=== PATIENT | male | born 1950 | race Caucasian/White ===

== ENCOUNTER 2018-01-06 05:59 | Emergency (ER) | payer MEDICARE, OTHER ==
[2018-01-06 06:20] VITALS: TEMP 98.1; BMI 28.9
[2018-01-06 06:36] LABS: URINE APPEARANCE CLEAR; URINE BILIRUBIN NEGATIVE (NEGATIVE); URINE BLOOD NEGATIVE (NEGATIVE); URINE COLOR LTYELLOW; URINE GLUCOSE (UA) 1+ (NEGATIVE); URINE KETONE NEGATIVE (NEGATIVE); URINE LEUK ESTERASE NEGATIVE (NEGATIVE); URINE NITRITE NEGATIVE (NEGATIVE); URINE PROTEIN NEGATIVE (NEGATIVE); URINE UROBILINOGEN NEGATIVE mg/dL (0.2-1.0)
--- NOTE | 2018-01-06 07:11 | PDOC ---
History of Present Illness - General Chief Complaint: Urinary Problem Stated Complaint: UNABLE TO URINATE Time Seen by Provider: 01/06/18 07:11 Past History - Past Medical History Allergies/Adverse Reactions: Allergies Allergy/AdvReac Type Severity Reaction Status Date / Time Penicillins Allergy "RASH" Verified 01/06/18 06:14 Home Medications: Ambulatory Orders Glyburide 5 mg PO DAILY 10/08/16 Lisinopril [Prinivil] 20 mg PO DAILY 10/08/16 Metformin HCl [Glucophage] 1,000 mg PO DAILY 10/08/16 Simvastatin 20 mg PO DAILY 10/08/16 COPD: No Diabetes: Yes HTN: Yes Hypercholesterolemia: Yes Other medical history: urinary / bladder problems - Surgical History Abdominal Surgery: Yes (HERNIA SURGERY) - Suicide/Smoking/Psychosocial Hx Smoking History: Never smoked Have you smoked in the past 12 months: No If you are a former smoker, when did you quit?: 13YRS AGO Hx Alcohol Use: No Drug/Substance Use Hx: No Substance Use Type: None Hx Substance Use Treatment: No *Physical Exam - Vital Signs Last Vital Signs Temp Pulse Resp BP Pulse Ox 98.1 F 78 22 136/76 98 01/06/18 06:19 01/06/18 06:19 01/06/18 06:19 01/06/18 06:19 01/06/18 06:19 ED Treatment Course - ADDITIONAL ORDERS Additional order review: Laboratory Results 01/06/18 06:20 Urine Color Ltyellow Urine Appearance Clear Urine pH 5.0 Ur Specific [place] 1.018 Urine Protein Negative Urine Glucose (UA) 1+ H Urine Ketones Negative Urine Blood Negative Urine Nitrite Negative Urine Bilirubin Negative Urine Urobilinogen Negative Ur Leukocyte Esterase Negative *DC/Admit/Observation/Transfer - Referrals Referrals: Edgard Shin MD [Primary Care Provider] - - Patient Instructions - Post Discharge Activity
--- NOTE | 2018-01-06 07:32 | PDOC ---
History of Present Illness - General Chief Complaint: Urinary Problem Stated Complaint: UNABLE TO URINATE Time Seen by Provider: 01/06/18 07:11 - History of Present Illness Initial Comments: 01/06/18 07:31 Mr. Aguilar is a 67 yo male w/ pmh of HTN, HLD, neurogenic bladder, and DM who presents c/o inability to urinate since he woke up around 2 or 3 am this morning. He reports this has happened last week as well and he had a subramanian placed at [facility] that was taken out later in the week. He has no complaints other than his inability to urinate at this time. The patient denies chest pain, shortness of breath, headache and dizziness. Denies fever, chills, nausea, vomit, diarrhea and constipation. Allergies: Penicillins, Aspirin Past History - Past Medical History Allergies/Adverse Reactions: Allergies Allergy/AdvReac Type Severity Reaction Status Date / Time Penicillins Allergy "RASH" Verified 01/06/18 06:14 Home Medications: Ambulatory Orders Glyburide 5 mg PO DAILY 10/08/16 Lisinopril [Prinivil] 20 mg PO DAILY 10/08/16 Metformin HCl [Glucophage] 1,000 mg PO DAILY 10/08/16 Simvastatin 20 mg PO DAILY 10/08/16 COPD: No Diabetes: Yes HTN: Yes Hypercholesterolemia: Yes Other medical history: urinary / bladder problems - Surgical History Abdominal Surgery: Yes (HERNIA SURGERY) - Suicide/Smoking/Psychosocial Hx Smoking History: Never smoked Have you smoked in the past 12 months: No If you are a former smoker, when did you quit?: 13YRS AGO Hx Alcohol Use: No Drug/Substance Use Hx: No Substance Use Type: None Hx Substance Use Treatment: No Review of Systems - Review of Systems Comments:: 01/06/18 07:31 GENERAL/CONSTITUTIONAL: No fever or chills. No weakness. HEAD, EYES, EARS, NOSE AND THROAT: No change in vision. No ear pain or discharge. No sore throat. CARDIOVASCULAR: No chest pain or shortness of breath RESPIRATORY: No cough, wheezing, or hemoptysis. GASTROINTESTINAL: No nausea, vomiting, diarrhea or constipation. GENITOURINARY: +Inability to urinate since he awoke around 2am this morning. MUSCULOSKELETAL: No joint or muscle swelling or pain. No neck or back pain. SKIN: No rash NEUROLOGIC: No headache, vertigo, loss of consciousness, or change in strength/ sensation. ENDOCRINE: No increased thirst. No abnormal weight change HEMATOLOGIC/LYMPHATIC: No anemia, easy bleeding, or history of blood clots. ALLERGIC/IMMUNOLOGIC: No hives or skin allergy. *Physical Exam - Vital Signs Last Vital Signs Temp Pulse Resp BP Pulse Ox 98.1 F 78 22 136/76 98 01/06/18 06:19 01/06/18 06:19 01/06/18 06:19 01/06/18 06:19 01/06/18 06:19 - Physical Exam Comments: 01/06/18 07:31 GENERAL: Awake, alert, and fully oriented, in no acute distress HEAD: No signs of trauma, normocephalic, atraumatic EYES: PERRLA, EOMI, sclera anicteric, conjunctiva clear ENT: Auricles normal inspection, hearing grossly normal, nares patent, oropharynx clear without exudates. Moist mucosa NECK: Normal ROM, supple, no lymphadenopathy, JVD, or masses LUNGS: No distress, speaks full sentences, clear to auscultation bilaterally HEART: Regular rate and rhythm, normal S1 and S2, no murmurs, rubs or gallops, peripheral pulses normal and equal bilaterally. ABDOMEN: Soft, nontender, normoactive bowel sounds. No guarding, no rebound. No masses EXTREMITIES: Normal inspection, Normal range of motion, no edema. No clubbing or cyanosis. NEUROLOGICAL: Cranial nerves II through XII grossly intact. Normal speech, normal gait, no focal sensorimotor deficits SKIN: Warm, Dry, normal turgor, no rashes or lesions noted. ED Treatment Course - ADDITIONAL ORDERS Additional order review: Laboratory Results 01/06/18 06:20 Urine Color Ltyellow Urine Appearance Clear Urine pH 5.0 Ur Specific [place] 1.018 Urine Protein Negative Urine Glucose (UA) 1+ H Urine Ketones Negative Urine Blood Negative Urine Nitrite Negative Urine Bilirubin Negative Urine Urobilinogen Negative Ur Leukocyte Esterase Negative Medical Decision Making - Medical Decision Making 01/06/18 09:06 Mr. Aguilar is a 67 yo male w/ pmh as described who presents for inability to urinate. Subramanian cath placed for relief and urine culture sent. Dr. August (pt' s urologist) consulted who will follow in office tomorrow. Patient does not currently have UTI as shown below. Discharging to home. Laboratory Results - last 24 hr 01/06/18 06:20 Urine Color Ltyellow Urine Appearance Clear Urine pH 5.0 Ur Specific [place] 1.018 Urine Protein Negative Urine Glucose (UA) 1+ H Urine Ketones Negative Urine Blood Negative Urine Nitrite Negative Urine Bilirubin Negative Urine Urobilinogen Negative Ur Leukocyte Esterase Negative *DC/Admit/Observation/Transfer Diagnosis at time of Disposition: Difficulty urinating - Discharge Dispostion Disposition: HOME - Referrals Referrals: Edgard Shin MD [Primary Care Provider] - - Patient Instructions Printed Discharge Instructions: How to Care for Your Subramanian Catheter -- Male Additional Instructions: Please return if any further difficulty urinating, fever, chills, pain, or other concerning symptoms. Follow-up with Dr. August tomorrow as discussed for further evaluation. Print Language: MONTSERRATIAN - Post Discharge Activity
--- NOTE | 2018-01-06 07:37 | PDOC ---
Attending Attestation - Resident Resident Name: Navjot Harris - ED Attending Attestation I have performed the following: I have examined & evaluated the patient, The case was reviewed & discussed with the resident, I agree w/resident's findings & plan, Exceptions are as noted - HPI HPI: 01/06/18 08:36 Mr Aguilar is a 67 yo M with a history of DM, HTN, HLD, neurogenic bladder He presents to the ER with a complaint of urinary retention since last night No fevers or chills Pt states he has noted decreased urine output No prior episodes of urinary retention, has had symptoms of BPH He states he is scheduled to have an outpt renal surgery for Kidney stones No flank pain - Physicial Exam PE: 01/06/18 08:41 GENERAL: The patient is in no acute distress, pt seen s/p hartmann placement, 200 cc clear urine noted. ABDOMEN: Soft, nontender, no guarding, no rebound MUSCULOSKELETAL: No CVA tenderness SKIN: Warm, Dry, normal turgor, no rashes or lesions noted. - Medical Decision Making 01/06/18 08:42 67-year-old male presented to emergency department with suspected urinary retention. No fever, chills, flank pain. Hartmann catheter placed with return of a possibly 200 mL of urine. UA is negative. His review with his urologist. He recommends that the catheter be left in place, patient be seen in follow-up tomorrow Clinical impression: ? urinery retention, initial presentation BPH, initial presentation
[2018-01-06 09:28] VITALS: BP 131/66; PULSE 70
== END 2018-01-06 09:28 | disposition home or self-care (01) ==
LOC: JER 05:59
PROC: 0T9B70Z Drainage of Bladder with Drainage Device, Via Natural or Artificial Opening (ICD-10-PCS; principal; 2018-01-06)
DX: R39.198 Other difficulties with micturition (principal); I10 Essential (primary) hypertension; E78.5 Hyperlipidemia, unspecified; N31.9 Neuromuscular dysfunction of bladder, unspecified; Z88.0 Allergy status to penicillin
CPT/HCPCS: 81003; 87086; 99283-25

== ENCOUNTER 2018-01-08 02:07 | Emergency (ER) | payer MEDICARE, OTHER ==
[2018-01-08 03:10] VITALS: BP 130/70; PULSE 75; TEMP 97.5; BMI 27.4
--- NOTE | 2018-01-08 03:16 | PDOC ---
History of Present Illness - General Exam Limitations: No Limitations - History of Present Illness Initial Comments: 01/08/18 03:16 The patient is a 67 year old male who is 1 day s/p subramanian catheter removal who presents to the ED complaining of 1 day of urinary retention. States his catheter was removed by his urologist yesterday and he was started on antibiotics. He also reports associated sharp, mild suprapubic pain. No fever or chills. No nausea, vomiting, or diarrhea. Urologist: Dr. Guillermo Newman <Jerica Weaver - Last Filed: 01/08/18 03:16> - General History Source: Patient <[email or web address] [email or web address] - Last Filed: 01/08/18 04:01> - General Chief Complaint: Urinary Problem Stated Complaint: PAIN Time Seen by Provider: 01/08/18 03:16 Past History <Jerica Weaver - Last Filed: 01/08/18 03:16> - Past Medical History COPD: No Diabetes: Yes HTN: Yes Hypercholesterolemia: Yes - Surgical History Abdominal Surgery: Yes (HERNIA SURGERY) - Suicide/Smoking/Psychosocial Hx Smoking History: Never smoked Have you smoked in the past 12 months: No If you are a former smoker, when did you quit?: 13YRS AGO Information on smoking cessation initiated: No Hx Alcohol Use: No Drug/Substance Use Hx: No Substance Use Type: None Hx Substance Use Treatment: No <Ubaldo Johnson - Last Filed: 01/08/18 04:01> - Past Medical History Allergies/Adverse Reactions: Allergies Allergy/AdvReac Type Severity Reaction Status Date / Time Penicillins Allergy "RASH" Verified 01/08/18 03:07 Home Medications: Ambulatory Orders Glyburide 5 mg PO DAILY 10/08/16 Lisinopril [Prinivil] 20 mg PO DAILY 10/08/16 Metformin HCl [Glucophage] 1,000 mg PO DAILY 10/08/16 Simvastatin 20 mg PO DAILY 10/08/16 Review of Systems - Review of Systems Able to Perform ROS?: Yes Comments:: 01/08/18 03:18 GENERAL/CONSTITUTIONAL: No fever or chills. No weakness. HEAD, EYES, EARS, NOSE AND THROAT: No change in vision. No ear pain or discharge. No sore throat. CARDIOVASCULAR: No chest pain or shortness of breath. RESPIRATORY: No cough, wheezing, or hemoptysis. GASTROINTESTINAL: No nausea, vomiting, diarrhea or constipation. GENITOURINARY: +Urinary retention, suprapubic pain. MUSCULOSKELETAL: No joint or muscle swelling or pain. No neck or back pain. SKIN: No rash NEUROLOGIC: No headache, vertigo, loss of consciousness, or change in strength/ sensation. ENDOCRINE: No increased thirst. No abnormal weight change. HEMATOLOGIC/LYMPHATIC: No anemia, easy bleeding, or history of blood clots. ALLERGIC/IMMUNOLOGIC: No hives or skin allergy. <Jerica Weaver - Last Filed: 01/08/18 03:16> *Physical Exam - Vital Signs Last Vital Signs Temp Pulse Resp BP Pulse Ox 97.5 F L 75 14 130/70 97 01/08/18 03:07 01/08/18 03:07 01/08/18 03:07 01/08/18 03:07 01/08/18 03:07 - Physical Exam Comments: 01/08/18 03:18 GENERAL: Awake, alert, and fully oriented, in no acute distress HEAD: No signs of trauma EYES: PERRLA, EOMI, sclera anicteric, conjunctiva clear ENT: Auricles normal inspection, nares patent. Moist mucosa NECK: Normal ROM, supple, no JVD, or masses LUNGS: Breath sounds equal, clear to auscultation bilaterally. No wheezes, and no crackles HEART: Regular rate and rhythm, normal S1 and S2, no murmurs, rubs or gallops ABDOMEN: +Mild suprapubic ttp. Soft, normoactive bowel sounds. No guarding, no rebound. No masses EXTREMITIES: Normal range of motion, no edema. No clubbing or cyanosis. No cords, erythema, or tenderness NEUROLOGICAL: Alert and oriented x 3. Moves all extremities. Face is symmetric. SKIN: Warm, Dry, normal turgor, no rashes or lesions noted. <Jerica Weaver - Last Filed: 01/08/18 03:16> - Vital Signs Last Vital Signs Temp Pulse Resp BP Pulse Ox 97.5 F L 75 14 130/70 97 01/08/18 03:07 01/08/18 03:07 01/08/18 03:07 01/08/18 03:07 01/08/18 03:07 <Ubaldo Johnson - Last Filed: 01/08/18 04:01> Medical Decision Making - Medical Decision Making 01/08/18 03:59 Dr. Johnson: The scribe's documentation has been prepared under my direction and personally reviewed by me in its entirery. I confirm that the note above accurately reflects all work, treatment, procedures, and medical decision making performed by me. subramanian catheter drained 700cc of yellow urine. Pt will be discharged with leg bag again. <Ubaldo Johnson - Last Filed: 01/08/18 04:01> *DC/Admit/Observation/Transfer - Attestations Scribe Attestion: 01/08/18 03:18 Documentation prepared by Jerica Weaver, acting as emergency medical service manager for Ubaldo Johnson DO. <Jerica Weaver - Last Filed: 01/08/18 03:16> - Discharge Dispostion Admit: No <Ubaldo Johnson - Last Filed: 01/08/18 04:01> Diagnosis at time of Disposition: Difficulty urinating - Discharge Dispostion Disposition: HOME Condition at time of disposition: Stable - Referrals Referrals: Edgard Shin MD [Primary Care Provider] - Oliverio August MD [Staff Physician] - - Patient Instructions Printed Discharge Instructions: DI for Urinary Retention in Men Print Language: NEPALESE - Post Discharge Activity
== END 2018-01-08 04:18 | disposition home or self-care (01) ==
LOC: JER 02:07
PROC: 0T9B70Z Drainage of Bladder with Drainage Device, Via Natural or Artificial Opening (ICD-10-PCS; principal; 2018-01-08)
DX: R39.198 Other difficulties with micturition (principal); I10 Essential (primary) hypertension; E78.00 Pure hypercholesterolemia, unspecified; Z88.0 Allergy status to penicillin
CPT/HCPCS: 99282-25

== ENCOUNTER 2018-01-13 14:48 | Day surgery (SDC) | payer MEDICARE, OTHER ==
[2018-01-10 16:54] VITALS: BMI 28.9
[2018-01-13 15:52] VITALS: TEMP 97.8
[2018-01-13] MEDS ORDERED: MIDAZOLAM HCL 2 MG/2 ML SINGLE DOSE VIAL ONE (17:31)
[2018-01-13] MEDS ORDERED: fentaNYL CITRATE 250 MCG/5 ML VIAL ONE (17:32)
--- NOTE | 2018-01-13 18:14 | OP ---
Operative Note - Note: Operative Date: 01/13/18 Pre-Operative Diagnosis: Right kidney stone Operation: Right ESWL Findings: 5 mm mid pole Right kidney stone Post-Operative Diagnosis: Same as Pre-op Surgeon: Oliverio August Anesthesia: Fractional Operative Report Dictated: Yes
[2018-01-13 18:35] VITALS: BP 128/73; PULSE 68
--- NOTE | 2018-01-14 14:21 | OP ---
DATE OF OPERATION: 01/13/2018 PREOPERATIVE DIAGNOSIS: Right renal stone. POSTOPERATIVE DIAGNOSIS: Right renal stone. PROCEDURE: Right extracorporeal shock wave lithotripsy. ATTENDING: Zofia Orozco MD ANESTHESIA: Fractional. The operations was as follows. The patient was brought into the operating room and placed in the supine position on the operating room table. Ultrasonography and fluoroscopy were performed. A 5-mm, right midpole stone was identified. At this point, fractional anesthesia and preoperative antibiotics were administered. Extracorporeal shock wave lithotripsy was then started. Next, 2500 impulses of 18 joules of power were administered to the stone with excellent fragmentation noted under real-time ultrasonography and fluoroscopy. No complications were noted. Disposition of the patient was recovery room. ZOFIA OROZCO M.D. [id number]
== END 2018-01-13 19:11 | disposition home or self-care (01) ==
LOC: JASU-SURG 14:48
PROVIDERS: ATTEND Urology
PROC: 0TF3XZZ Fragmentation in Right Kidney Pelvis, External Approach (ICD-10-PCS; principal; 2018-01-13 17:00)
DX: N20.0 Calculus of kidney (principal)
CPT/HCPCS: 82962

== ENCOUNTER 2018-01-27 06:56 | Day surgery (SDC) | payer MEDICARE, OTHER ==
[2018-01-24 10:24] VITALS: BMI 28.9
[2018-01-27] MEDS ORDERED: MIDAZOLAM HCL 2 MG/2 ML SINGLE DOSE VIAL ONE ×3 (10:26→12:43)
[2018-01-27] MEDS ORDERED: PROPOFOL 20 ML ONE (10:26)
[2018-01-27] MEDS ORDERED: BUPIVACAINE 0.75% IN DEXTROSE/PF 2ML AMPULE NR ONE (10:59)
[2018-01-27] MEDS ORDERED: oxyCODONE HCL 5 MG TABLET PO PRN (12:18)
[2018-01-27] MEDS ORDERED: ONDANSETRON 4 MG/2 ML VIAL IVPUSH PRN (12:18)
[2018-01-27] MEDS ORDERED: LACTATED RINGERS SOLUTION 1,000 ML IV SCH (12:30)
--- NOTE | 2018-01-27 13:20 | OP ---
Operative Note - Note: Operative Date: 01/27/18 Pre-Operative Diagnosis: bph/urinary retention Operation: turp/tuvp with bipolar system; transurethral removal of bladder stones Findings: obstructive prostate with bladder stones Post-Operative Diagnosis: Other (same with bladder stones) Surgeon: Oliverio August Anesthesia: Spinal Specimens Removed: bladder stones/prostate chips Estimated Blood Loss (mls): 50 Drains & Tubes with Location: 26 persian subramanian
[2018-01-27 15:58] VITALS: TEMP 97.5
[2018-01-27 17:59] VITALS: BP 124/67; PULSE 75
--- NOTE | 2018-01-27 20:29 | OP ---
DATE OF OPERATION: 01/27/2018 PREOPERATIVE DIAGNOSES: Benign prostatic hypertrophy and urinary retention. POSTOPERATIVE DIAGNOSES: Benign prostatic hypertrophy and urinary retention with bladder stones. PROCEDURE: Transurethral resection and transurethral vaporization of the prostate utilizing bipolar system and transurethral removal of bladder stones. ATTENDING: Zofia Orozco MD ANESTHESIA: Spinal. DESCRIPTION OF OPERATION: Patient was brought in the operating room and placed in a supine position on the operating room table. At this point, spinal anesthesia was given by Anesthesia. The patient was also given Levaquin preoperatively for surgical prophylaxis. The patient was then placed in dorsal lithotomy position and prepped and draped in the usual sterile manner. Resection of the prostate was performed with the margins being the bladder neck proximally and the verumontanum distally. The prostate was resected in a 360-degree fashion. This reduced the bulky obstruction of the prostate. The bladder had been entered, and there were bladder stones initially noted. These bladder stones were evacuated from the bladder with an [employer] evacuator and sent for analysis. All prostatic chips were also evacuated with the [employer] evacuator. With all of the chips removed and the prostate debulked with the resection utilizing the bipolar system, the loop element was changed to the button element. The button element was then used in a 360-degree fashion. The verumontanum was the distal aspect of the vaporization and the bladder neck the proximal aspect of the vaporization. Vaporization was carried forth to the pseudocapsule of the prostate. Excellent hemostasis was obtained. The bladder was inspected, and both ureteral orifices were noted to be untouched by the surgery. There was no evidence of bladder perforation. At this point, a 26-Yi catheter was placed under light traction to straight drainage. No complications were noted. The patient tolerated the procedure very well. The disposition of the patient was to recovery room. ZOFIA OROZCO M.D. [id number]
--- NOTE | 2018-01-28 16:38 | PATH ---
Surgical Pathology Report Patient Name: BELKYS MASON [facility]. Rec. #: [id number] /Age/Gender: 1950 (Age: 67) / M Account: [id number] Location: [facility] SURGICAL Taken: 01/27/2018 Received: 01/27/2018 Reported: 01/28/2018 Physicians: Oliverio August Specimen(s) Received A: BLADDER STONE B: PROSTATE TISSUE Clinical History BPH Final Diagnosis A. BLADDER STONE, REMOVAL: BLADDER CALCULI. MACROSCOPIC DIAGNOSIS. B. PROSTATE, TRANSURETHRAL RESECTION OF PROSTATE: BENIGN PROSTATIC TISSUE WITH ACUTE AND CHRONIC INFLAMMATION, PARTIAL ATROPHY, CYSTIC CHANGES, GLANDULAR AND STROMAL HYPERPLASIA. Electronically Signed Elizabeth Sanchez M.D. Gross Description A. Received fresh labeled "bladder stone," is a 1.0 x 0.6 x 0.2 cm aggregate of tyler, irregular to fragmented calculi. The specimen is sent for chemical analysis. B. Received in formalin labeled "prostate tissue," is a 26 g, 11.0 x 10.5 x 0.5 cm aggregate of tyler, firm to rubbery portions of tissue, consistent with prostate chips. [employer] portions are submitted in 12 cassettes. /01/27/2018 saudi01/27/2018
== END 2018-01-27 17:59 | disposition home or self-care (01) ==
LOC: JASU-SURG 06:56
PROVIDERS: ATTEND Urology
PROC: 0TCB7ZZ Extirpation of Matter from Bladder, Via Natural or Artificial Opening (ICD-10-PCS; 2018-01-27)
PROC: 0VT08ZZ Resection of Prostate, Via Natural or Artificial Opening Endoscopic (ICD-10-PCS; principal; 2018-01-27 09:00)
DX: N40.1 Benign prostatic hyperplasia with lower urinary tract symptoms (principal); N21.0 Calculus in bladder; R33.8 Other retention of urine
CPT/HCPCS: 36415; 82360; 82962; 88300-TC; 88305-TC; 94760

== ENCOUNTER 2023-05-28 05:40 | Day surgery (SDC) | payer OTHER ==
[2023-05-24 14:54] VITALS: BMI 28.6
[2023-05-28 11:11] VITALS: BP 106/57; PULSE 64; RESP 19; TEMP 98.1
== END 2023-05-28 11:30 | disposition home or self-care (01) ==
LOC: JASU-ENDO 05:40
PROVIDERS: ATTEND Student in an Organized Health Care Education/Training Program
DX: Z53.8 Procedure and treatment not carried out for other reasons (principal)
CPT/HCPCS: 82962

== ENCOUNTER 2023-06-25 05:08 | Day surgery (SDC) | payer OTHER ==
[2023-06-19 13:29] VITALS: BMI 28.8
[2023-06-25 13:17] VITALS: BP 88/40; PULSE 68; RESP 15; TEMP 97.5
== END 2023-06-25 13:55 | disposition home or self-care (01) ==
LOC: JASU-ENDO 05:08
PROVIDERS: ATTEND Student in an Organized Health Care Education/Training Program
PROC: 0DJD8ZZ Inspection of Lower Intestinal Tract, Via Natural or Artificial Opening Endoscopic (ICD-10-PCS; principal; 2023-06-25 12:30)
DX: Z12.11 Encounter for screening for malignant neoplasm of colon (principal); K57.30 Diverticulosis of large intestine without perforation or abscess without bleeding; I10 Essential (primary) hypertension; E11.9 Type 2 diabetes mellitus without complications; Z79.84 Long term (current) use of oral hypoglycemic drugs
CPT/HCPCS: 82962